=== PATIENT | female | born 1940 | race Caucasian/White ===

== ENCOUNTER 2016-06-05 08:23 | Day surgery (SDC) | payer OTHER ==
[2016-05-30 17:09] LABS: BASOPHILS 0.3 %; BASOPHILS ABSOLUTE 0.03 10/3/uL (0.0-0.16); EOSINOPHILS ABSOLUTE 0.37 10/3/uL (0.0-0.53); IMMATURE GRANULOCYTES 0.3 %; IMMATURE GRANULOCYTES ABSOLUTE 0.03 10/3/uL (0.0-0.11); LYMPHOCYTES 21.6 %; LYMPHOCYTES ABSOLUTE 2.02 10/3/uL (0.67-4.30); MEAN CORPUSCULAR HEMOGLOB 30.7 pg (26.0-34.0); MEAN CORPUSCULAR VOLUME 94.1 fL (80-100); MEAN PLATELET VOLUME 9.8 fL (9.2-13.0); MONOCYTES 6.3 %; MONOCYTES ABSOLUTE 0.59 10/3/uL (0.21-1.20); NEUTROPHILS 67.5 %; NEUTROPHILS ABSOLUTE 6.31 10/3/uL (2.02-8.40); RBC DISTRIBUTION WIDTH 13.5 % (12.0-16.0); WHITE BLOOD CELLS 9.4 10/3/uL (4.5-10.5)
[2016-05-30 17:11] LABS: HEMATOCRIT 45.9 % (36.0-48.0); MANUAL DIFF NO %; MEAN CORPUS HGB CONC 32.7 g/dL (32.0-36.0); PLATELET COUNT 236 10/3/uL (150-400); RED CELL COUNT 4.88 10/6/uL (4.0-5.6)
[2016-05-30 17:32] LABS: BUN (BLOOD UREA NITROGEN) 18 MG/DL (6-23); CALCIUM, SERUM 9.2 MG/DL (8.5-10.4); CHLORIDE, SERUM 102 MMOL/L (96-112); CO2 (CARBON DIOXIDE) 32 MMOL/L (24-34); CREATININE 0.94 MG/DL (0.55-1.02); GFR AFRICAN AMERICAN 68 ML/MIN (>=60); GFR NON AFRICAN AMERICAN 59 ML/MIN (>=60); GLUCOSE, SERUM 80 MG/DL (60-99); POTASSIUM, SERUM 4.5 MMOL/L (3.5-5.3); PREALBUMIN 26.4 MG/DL (17.0-43.0); SODIUM, SERUM 142 MMOL/L (135-148)
--- NOTE | ~2016-06-05 | OP ---
Record Of Operation [facility] [address] [place]. [address] NAME: BUZZ FLORES : 38 STATUS : [facility]#: [id number] AGE: 75 ADM/REG DATE : 06/05/16 MR#: [id number] REPORT SERV DATE: 06/05/16 DICTATED BY: DEB COELHO JR. DATE: 06/05/16 REPORT STATUS : Draft TRANSCRIBED BY: SHANIA DATE: 06/05/16 DATE OF PROCEDURE: SURGEON: Deb Coelho M.D. ASSISTANTS: Isabel Lester. PROCEDURE: Wide excision of skin cancer right lower leg (3.2 cm) with split-thickness skin graft (3.2 x 2.5) and excision of indeterminate lesion of the left medial lower leg (1 or 2 cm). PREOPERATIVE DIAGNOSIS: Skin cancer of right lower leg and indeterminate lesion of medial left leg. POSTOPERATIVE DIAGNOSIS: Skin cancer of right lower leg and indeterminate lesion of medial left leg. ANESTHESIA: General. INDICATIONS: The patient had an enlarging lesion of the lateral right lower leg. 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 Excision of each was indicated with wide excision of this cancer. FINDINGS: The area of the lateral leg was excised with a 0.5 cm margin, this yielded 3.2 x 2 x 2 cm excision size. Past frozen section showed no invasive cancer. There was some dysplasia at the the margins which grossly negative. This defect was closed with split- thickness graft. The internal lesions excised in full-thickness fashion and final diagnosis deferred. DESCRIPTION OF PROCEDURE: With adequate general anesthesia, the patient was placed in the supine position. The right leg was prepped and draped sterilely. A 0.5% Marcaine was also used for adjunctive local infiltration of anesthesia. Attention turned to the lateral skin cancer lesion. The incision was made and deepened, and then full thickness of skin and subcutaneous tissue were excised. It was submitted to pathology for appropriate orientation. Bleeders controlled with electrocautery. Then, the medial lesion was excised as well, and this defect was closed with mattress of 4-0 nylon. Then, a 0.18 inches split- thickness graft was harvested from the right thigh. This was "pie crusted" and then cut the size of defect and sewed to the edges with a 5-0 Monocryl suture. Over this restore contact layer along with Aquacel and then negative pressure ODIN dressing was placed. There was also cover the medial lesion. The donor site was dressed with [place] skin substitute along with Restore and Aquacel. The patient left the operating room in satisfactory condition use. BLOOD LOSS: 30 mL. Record Of Operation [facility] [address] [place]. [address] NAME: BUZZ FLORES : 38 STATUS : [facility] PAT#: [id number] AGE: 75 ADM/REG DATE : 06/05/16 MR#: [id number] REPORT SERV DATE: 06/05/16 DICTATED BY: DEB COELHO JR. DATE: 06/05/16 REPORT STATUS : Draft TRANSCRIBED BY: SHANIA DATE: 06/05/16 ALEXIS/SHANIA Deb Coelho Jr., M.D. / [id number] CC: Flora Kemp Jr., M.D.
[~2016-06-05 08:23] MED LIST: ASAB PO; AUG500 PO; ELIQUIS 5 MG TAB5 MG PO; ESTRACE PO; FLORASTOR250 MG PO; KLOR-CON M2020 MEQ PO; MAGOX4 PO; MAXZIDE PO; PRILO PO; PROTONIX PO; VITAMIN PO; ZOFRAN ODT4 MG PO
== END 2016-06-05 18:16 | disposition home or self-care (01) ==
LOC: SDC 08:23
PROVIDERS: Specialist
PROC: 0YBH0ZZ Excision of Right Lower Leg, Open Approach (ICD-10-PCS; principal; 2016-06-05 10:00)
DX: L57.0 Actinic keratosis (principal); I10 Essential (primary) hypertension; K21.9 Gastro-esophageal reflux disease without esophagitis; E66.9 Obesity, unspecified; Z68.36 Body mass index [BMI] 36.0-36.9, adult; Z88.1 Allergy status to other antibiotic agents; Z96.1 Presence of intraocular lens; Z90.710 Acquired absence of both cervix and uterus; Z85.43 Personal history of malignant neoplasm of ovary; Z98.49 Cataract extraction status, unspecified eye; Z98.890 Other specified postprocedural states; Z90.49 Acquired absence of other specified parts of digestive tract; Z79.82 Long term (current) use of aspirin; Z79.01 Long term (current) use of anticoagulants; Z79.899 Other long term (current) drug therapy
CPT/HCPCS: 36415; 80048; 84134; 85025; 88305; 88331; 88332; 93005; A9270-GY; J0690; J2250; J2405; J3010